=== PATIENT | female | born 1950 | race Caucasian/White ===

== ENCOUNTER 2023-04-15 12:14 | Observation (INO) | payer MEDICARE, OTHER, SELFPAY ==
[2023-04-15] VITALS (13 sets, daily range): BP systolic 107–160; BP diastolic 46–76; PULSE 59–97; RESP 16–31; TEMP 36.6–36.8; O2SAT 94–99; BMI 26.6
--- NOTE | 2023-04-15 13:09 | CT_ITS ---
The [address] [address] Patient Name: ESPINOZA MONAE MRN: [id number] date: 1950 Sex: F Assigned Patient Location: ED.MAIN Current Patient Location: ER Accession/Order Number: [id number] Exam Date: 04/15/2023 13:45 Report Date: 04/15/2023 14:18 At the request of: PERICO RODRIGUEZ Procedure: CT stroke head/brain wo con EXAMINATION: CT stroke head/brain wo con HISTORY: right sided paresthesias COMPARISON: No relevant comparison available. TECHNIQUE: Axial CT images were obtained without IV contrast. Dose reduction techniques were achieved by using automated exposure control and/or adjustment of mA and/or kV according to patient size and/or use of iterative reconstruction technique. FINDINGS: BRAIN: No edema, hemorrhage, mass, acute infarction, or inappropriate atrophy. CSF SPACES: No hydrocephalus, subarachnoid hemorrhage, or mass. Appropriate for age. SKULL: No fracture, mass, or other significant visible lesion. SINUSES: No significant mucosal thickening or fluid on the limited views. ORBITS: No appreciable abnormality on the limited views. OTHER: Negative IMPRESSION: 1. No intracranial hemorrhage. 2. No CT evidence of acute ischemia or suspicious findings. 3. Age consistent mild chronic changes. Electronically authenticated by: AKI SEE Date: 04/15/2023 14:18
--- NOTE | 2023-04-15 13:09 | XR_ITS ---
The [address] [address] Patient Name: ESPINOZA MONAE MRN: [id number] date: 1950 Sex: F Assigned Patient Location: ED.MAIN Current Patient Location: ER Accession/Order Number: [id number] Exam Date: 04/15/2023 13:45 Report Date: 04/15/2023 14:24 At the request of: PERICO RODRIGUEZ Procedure: XR chest 1V EXAMINATION: XR chest 1V HISTORY: chest pain COMPARISON: No relevant comparison available. FINDINGS: LUNGS: Mild haziness within lateral left lung base. VASCULATURE: No increased pulmonary vasculature. PLEURA: No pneumothorax, effusion, or pleural thickening. CARDIAC: No cardiomegaly or cardiac silhouette abnormality. MEDIASTINUM: No visible mass or adenopathy. BONES: No fracture or visible bone lesion. OTHER: Negative. IMPRESSION: 1. Minimal left basilar atelectasis versus infiltrates. Electronically authenticated by: AKI SEE Date: 04/15/2023 14:24
--- NOTE | 2023-04-15 13:55 | ED.GENADUL1 ---
HPI - General Adult General Chief complaint: Chest Pain Stated complaint: headache Time Seen by Provider: 04/15/23 13:04 Source: patient Mode of arrival: ambulance History of Present Illness HPI narrative: cc - right sided tingling and central chest pain A few hours ago the patient developed intense tingling down the right side of her body and her face. She said that she felt slightly dizzy and had a mild throbbing throughout her head. These symptoms have significantly lessened. She also complains of mid sternal chest pain that began within the last hour [employer]. No associated shortness of breath. No injury to the chest and no recent or associated cough. She only takes over the counter supplements and eye drops to treat dry eyes. No prior history of cardiac disease or stroke. Related Data Allergies Allergy/AdvReac Type Severity Reaction Status Date / Time Tumeric Allergy Unknown Uncoded 04/15/23 12:21 phenergan AdvReac Severe Hypotension Uncoded 04/15/23 12:21 Exam Narrative: Exam Narrative: Nurses notes and vital signs reviewed and patient is not hypoxic. afebrile General: Well-appearing and in no apparent distress. Skin: Warm, dry, no pallor noted. No rash. Head: Normocephalic, atraumatic. Neck: Supple, non-tender. Eye: Pupils are equal, round and EOMI. No scleral icterus. Ears, Nose, Mouth, and Throat: Oral mucosa is moist, no tongue deviation Cardiovascular: Regular Rate and Rhythm without murmur, gallop or rub. Respiratory: No accessory muscle use or respiratory distress. Lungs are clear to auscultation, no wheezing, rales or rhonchi No chest wall tenderness Musculoskeletal: normal ROM, no calf or popliteal tenderness, no lower extremity edema/swelling GI: Abdomen is soft, non-distended. Normal bowel sounds. No tenderness to palpation. No rebound, guarding, or rigidity noted. Neurological: A&O x4. No cranial nerve dysfunction observed. No truncal ataxia. Moves all extremities. Sensation intact. Psychiatric: Cooperative and interactive. Normal mood and affect. Constitutional: Vital Signs, click to edit/add: Vital Signs - 24 hr 04/15/23 12:21 Temperature 97.9 F Pulse Rate [Monito r Right] 85 Respiratory Rate 16 Blood Pressure [Ri ght Arm] 160/75 H Pulse Oximetry 98 Oxygen Delivery Me thod Room Air Course Vital Signs Vital signs: Vital Signs Temperature 97.9 F 04/15/23 12:21 Pulse Rate 85 04/15/23 12:21 Respiratory Rate 16 04/15/23 12:21 Blood Pressure 160/75 H 04/15/23 12:21 Pulse Oximetry 98 04/15/23 12:21 Oxygen Delivery Method Room Air 04/15/23 12:21 Temperature 97.9 F 04/15/23 12:21 Pulse Rate 85 04/15/23 12:21 Respiratory Rate 16 04/15/23 12:21 Blood Pressure 160/75 H 04/15/23 12:21 Pulse Oximetry 98 04/15/23 12:21 Oxygen Delivery Method Room Air 04/15/23 12:21 Medical Decision Making MDM Narrative Medical decision making narrative: Patient was placed on equipment monitor phototypesetting and EKG obtained. Blood drawn and sent for evaluation. patient was sent for CT scanning of the brain to evaluate for stroke. Chest x-ray was also obtained. radiologist did not identify any evidence of acute intracranial hemorrhage or large CVA on the patient's noncontrast head CT. Chest x-ray was also unremarkable - there was some question of atelectasis. pulmonary testing did not reveal any acute abnormalities. Troponin was negative. Due to the patient's age and due to lack of prior cardiac evaluation and concern for both acute cardiac disease as well as the potential for acute neurovascular problem the patient will be admitted for further testing. I discuss patient's case with Dr. Peace, the hospitalist, who will evaluate this patient further. The patient was informed of the findings, diagnosis and plan to admit. Lab Data Labs: Lab Results 04/15/23 Range/Units 14:08 WBC 7.7 (4.0-11.0) 10^3/uL RBC 4.66 (4.20-5.40) 10^6/uL Hgb 13.7 (12.0-16.0) g/dL Hct 41.8 (36.0-48.0) % MCV 89.7 (81.0-99.0) fL MCH 29.4 (26.7-34.0) pg MCHC 32.8 (29.9-35.2) g/dL RDW 12.7 (11.0-15.0) % Plt Count 214 (150-450) 10^3/uL MPV 10.7 (9.5-13.5) fL Neut % (Auto) 79.6 H (43.0-75.0) % Lymph % (Auto) 12.8 L (20.5-60.0) % Carroll % (Auto) 4.7 (1.7-12.0) % Eos % (Auto) 1.6 (0.9-7.0) % Baso % (Auto) 0.8 (0.2-2.0) % Neut # (Auto) 6.2 (1.4-6.5) 10^3/uL Lymph # (Auto) 1.0 L (1.2-3.8) 10^3/uL [place] # (Auto) 0.4 (0.3-0.8) 10^3/uL Eos # (Auto) 0.1 (0.0-0.7) 10^3/uL Baso # (Auto) 0.1 (0.0-0.1) 10^3/uL Nucleated RBCs 0 Sodium 137 (136-145) mmol/L Potassium 3.8 (3.5-5.1) mmol/L Chloride 99 (98-107) mmol/L Carbon Dioxide 30.4 (21.0-32.0) mmol/L Anion Gap 11.4 BUN 12.0 (7.0-18.0) mg/dL Creatinine 0.76 (0.55-1.02) mg/dL Est GFR ( Amer) >60 (>=60) Est GFR (Non-Af Amer) >60 (>=60) BUN/Creatinine Ratio 15.8 Glucose 116 H (74-106) mg/dL Calcium 9.3 (8.5-10.1) mg/dL Troponin I High Sens 43.2 (4.0-51.3) pg/mL Imaging Data CT scan - head: Radiologist's impression: Patient Name: ESPINOZA MONAE MRN: [facility]:[id number] date: 1950 Sex: F Assigned Patient Location: ED.MAIN Current Patient Location: ER Accession/Order Number: [id number] Exam Date: 04/15/2023 13:45 Report Date: 04/15/2023 14:18 At the request of: PERICO RODRIGUEZ Procedure: CT stroke head/brain wo con EXAMINATION: CT stroke head/brain wo con HISTORY: right sided paresthesias COMPARISON: No relevant comparison available. TECHNIQUE: Axial CT images were obtained without IV contrast. Dose reduction techniques were achieved by using automated exposure control and/or adjustment of mA and/or kV according to patient size and/or use of iterative reconstruction technique. FINDINGS: BRAIN: No edema, hemorrhage, mass, acute infarction, or inappropriate atrophy. CSF SPACES: No hydrocephalus, subarachnoid hemorrhage, or mass. Appropriate for age. SKULL: No fracture, mass, or other significant visible lesion. SINUSES: No significant mucosal thickening or fluid on the limited views. ORBITS: No appreciable abnormality on the limited views. OTHER: Negative IMPRESSION: 1. No intracranial hemorrhage. 2. No CT evidence of acute ischemia or suspicious findings. 3. Age consistent mild chronic changes. Electronically authenticated by: AKI SEE Date: 04/15/2023 14:18 Chest x-ray: Radiologist's impression: Patient Name: ESPINOZA MONAE MRN: [facility]:[id number] date: 1950 Sex: F Assigned Patient Location: ED.MAIN Current Patient Location: ER Accession/Order Number: [id number] Exam Date: 04/15/2023 13:45 Report Date: 04/15/2023 14:24 At the request of: PERICO RODRIGUEZ Procedure: XR chest 1V EXAMINATION: XR chest 1V HISTORY: chest pain COMPARISON: No relevant comparison available. FINDINGS: LUNGS: Mild haziness within lateral left lung base. VASCULATURE: No increased pulmonary vasculature. PLEURA: No pneumothorax, effusion, or pleural thickening. CARDIAC: No cardiomegaly or cardiac silhouette abnormality. MEDIASTINUM: No visible mass or adenopathy. BONES: No fracture or visible bone lesion. OTHER: Negative. IMPRESSION: 1. Minimal left basilar atelectasis versus infiltrates. Electronically authenticated by: AKI SEE Date: 04/15/2023 14:24 ECG Data Interpretation: EKG interpretation: Emergency Department physician interpretation. Normal sinus rhythm at 72bpm. Indeterminatel axis, incomplete RBBB. No ST segment elevation or depression. Discharge Plan Discharge Chief Complaint: Chest Pain Clinical Impression: Paresthesia, Chest pain Patient Disposition: Admitted As Inpatient Time of Disposition Decision: 15:15 Referrals: ZULAY GONZALES [Primary Care Provider] - 1 week
[2023-04-15 14:22] LABS: Basophils Absolute Auto 0.1 10^3/uL (0.0-0.1); Basophils Percent Auto 0.8 % (0.2-2.0); Eosinophils Absolute Auto 0.1 10^3/uL (0.0-0.7); Eosinophils Percent Auto 1.6 % (0.9-7.0); Hematocrit 41.8 % (36.0-48.0); Hemoglobin 13.7 g/dL (12.0-16.0); Immature Granulocytes Abs Auto 0.04 10^3/uL (0.00-0.03); Immature Granulocytes Pct Auto 0.5 % (0.0-0.5); Lymphocytes Percent Auto 12.8 % (20.5-60.0); Mean Corpuscular HGB Conc 32.8 g/dL (29.9-35.2); Mean Corpuscular Hemoglobin 29.4 pg (26.7-34.0); Mean Corpuscular Volume 89.7 fL (81.0-99.0); Mean Platelet Volume 10.7 fL (9.5-13.5); Monocytes Absolute Auto 0.4 10^3/uL (0.3-0.8); Monocytes Percent Auto 4.7 % (1.7-12.0); Neutrophils Absolute Auto 6.2 10^3/uL (1.4-6.5); Neutrophils Percent Auto 79.6 % (43.0-75.0); Nucleated Red Blood Cells 0; Platelet Count 214 10^3/uL (150-450); Red Blood Count 4.66 10^6/uL (4.20-5.40); Red Cell Distribution Width 12.7 % (11.0-15.0); White Blood Count 7.7 10^3/uL (4.0-11.0)
[2023-04-15] MEDS: ASPIRIN 81 MG TAB.CHEW 324 MG PO (14:27)
[2023-04-15 14:34] LABS: Anion Gap 11.4; BUN Creatinine Ratio 15.8; Calcium 9.3 mg/dL (8.5-10.1); Carbon Dioxide 30.4 mmol/L (21.0-32.0); Chloride 99 mmol/L (98-107); Estimated GFR (African America >60 (>=60); Estimated GFR (Non-African Ame >60 (>=60); Glucose 116 mg/dL (74-106); Potassium 3.8 mmol/L (3.5-5.1); Sodium 137 mmol/L (136-145); Troponin I High Sensitivity 43.2 pg/mL (4.0-51.3)
--- NOTE | 2023-04-15 14:58 | CT_ITS ---
[address] [address] Patient Name: ESPINOZA MONAE MRN: [id number] date: 1950 Sex: F Assigned Patient Location: ER Current Patient Location: ICU Accession/Order Number: [id number] Exam Date: 04/15/2023 16:05 Report Date: 04/15/2023 17:27 At the request of: PERICO RODRIGUEZ Procedure: CT angio head EXAMINATION: CT angiogram of the head and neck with intravenous contrast. COMPARISON: Correlated with noncontrast head CT from today. CLINICAL STATEMENT: right sided paresthesia. headache TECHNIQUE: Helical CT images of the head and neck were obtained after the administration of IV contrast. Multiplanar reformats and maximum intensity projection images were generated at the scanner. 3-D imaging was performed. Dose reduction technique used: Automated exposure control and/or adjustment of the mA and/or kV according to patient size and/or use of iterative reconstruction technique. Findings: CTA of the neck: Aortic arch: Conventional arch anatomy. No significant stenosis of the brachiocephalic artery, right or left subclavian arteries. Right common carotid artery: No significant stenosis. Right internal carotid artery: No significant plaque. No hemodynamically significant stenosis, with degree of narrowing in the <50% range. Left common carotid artery: No significant stenosis. Left internal carotid artery: No significant plaque. No hemodynamically significant stenosis, with degree of narrowing in the <50% range. Vertebral arteries: No hemodynamically significant stenosis. * Note: Measurements of stenoses were done in accordance with NASCET criteria. That is, the stenosis is calculated from the ratio of the linear luminal diameter of the narrowest segment of the diseased portion of the artery compared to the diameter of the artery beyond or distal to any post stenotic dilatation. CTA of the head ([place], COW): Right anterior circulation: Normal course and caliber of the right intracranial internal carotid artery. Conventional branching anatomy into the anterior and middle cerebral arteries. No significant stenosis. No aneurysm. Left anterior circulation: Normal course and caliber of the right intracranial internal carotid artery. Conventional branching anatomy into the anterior and middle cerebral arteries. No significant stenosis. No aneurysm. Anterior communicating artery: Present. No aneurysm. Posterior communicating arteries: May be congenitally absent or hypoplastic. Posterior circulation: No significant stenosis. No aneurysm. Soft tissues of the neck: No other significant findings. Visualized lung apices: Clear. Osseous: No acute findings. Impression: 1. No large vessel occlusion. 2. No significant stenosis of the cervical carotid or vertebral arteries. Electronically authenticated by: NASH HERNÁNDEZ Date: 04/15/2023 17:27
--- NOTE | 2023-04-15 14:58 | CT_ITS ---
[address] [address] Patient Name: ESPINOZA MONAE MRN: [id number] date: 1950 Sex: F Assigned Patient Location: ER Current Patient Location: ICU Accession/Order Number: [id number] Exam Date: 04/15/2023 16:05 Report Date: 04/15/2023 17:27 At the request of: PERICO RODRIGUEZ Procedure: CT angio neck EXAMINATION: CT angiogram of the head and neck with intravenous contrast. COMPARISON: Correlated with noncontrast head CT from today. CLINICAL STATEMENT: right sided paresthesia. headache TECHNIQUE: Helical CT images of the head and neck were obtained after the administration of IV contrast. Multiplanar reformats and maximum intensity projection images were generated at the scanner. 3-D imaging was performed. Dose reduction technique used: Automated exposure control and/or adjustment of the mA and/or kV according to patient size and/or use of iterative reconstruction technique. Findings: CTA of the neck: Aortic arch: Conventional arch anatomy. No significant stenosis of the brachiocephalic artery, right or left subclavian arteries. Right common carotid artery: No significant stenosis. Right internal carotid artery: No significant plaque. No hemodynamically significant stenosis, with degree of narrowing in the <50% range. Left common carotid artery: No significant stenosis. Left internal carotid artery: No significant plaque. No hemodynamically significant stenosis, with degree of narrowing in the <50% range. Vertebral arteries: No hemodynamically significant stenosis. * Note: Measurements of stenoses were done in accordance with NASCET criteria. That is, the stenosis is calculated from the ratio of the linear luminal diameter of the narrowest segment of the diseased portion of the artery compared to the diameter of the artery beyond or distal to any post stenotic dilatation. CTA of the head ([place], COW): Right anterior circulation: Normal course and caliber of the right intracranial internal carotid artery. Conventional branching anatomy into the anterior and middle cerebral arteries. No significant stenosis. No aneurysm. Left anterior circulation: Normal course and caliber of the right intracranial internal carotid artery. Conventional branching anatomy into the anterior and middle cerebral arteries. No significant stenosis. No aneurysm. Anterior communicating artery: Present. No aneurysm. Posterior communicating arteries: May be congenitally absent or hypoplastic. Posterior circulation: No significant stenosis. No aneurysm. Soft tissues of the neck: No other significant findings. Visualized lung apices: Clear. Osseous: No acute findings. Impression: 1. No large vessel occlusion. 2. No significant stenosis of the cervical carotid or vertebral arteries. Electronically authenticated by: NASH HERNÁNDEZ Date: 04/15/2023 17:27
--- NOTE | 2023-04-15 16:11 | ECG_ITS ---
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
--- NOTE | 2023-04-15 16:17 | P.HP_ITS ---
H&P: HPI History of Present Illness Chief complaint: headache Narrative: Patient is a 73-year-old female with past medical history of dry eyes who presents with a few day history of some right-sided arm weakness, some right facial tingling, and just general weakness. She reports that symptoms come and go and are not there for any extended period of time. She also states that she's had some chest pain more discomfort and pressure-like feeling nonradiating. She has a history of some neck pain that has been chronic over the last few months she has been using some arthritis topical gel that has been helping. 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 Patient has no prior cardiac history has had no reason to have a cardiac workup such as stress test. Patient denies any high blood pressure diabetes high cholesterol or family history of stroke or personal history of stroke. She gets around great at home her is present at the time of admission exam and he notes no change in speech and confusion. At times she feels dizzy if she moves her head too fast. Review of Systems ROS Narrative ROS: a complete review of systems were reviewed with patient and are positive as below or listed in History of Chief Complaint. General: no fever, chills, night sweats Head:headache, trauma, visual changes, nausea or vomiting Skin: no reported rashes, itching or sores Eyes: no blurriness of vision Ears: no reported hearing loss, vertigo, earache, or tinnitus Throat: no sore throat, hoarseness, swelling of neck, or tongue pain Heart: midsternal chest pain/pressure Lungs: no shortness of breath or cough GI: no diarrhea or vomiting/nausea Urinary: no urinary urgency, frequency or pain Neuro: right arm and right facial numbness and tingling HEM: no bleeding issues or bruising ENDO: no thyroid problems Psych: no anxiety or depression PFSH PFSH Surgical History (Updated 04/15/23 @ 16:36 by Xochitl Peace DO) Family History (Updated 04/15/23 @ 16:35 by Xochitl Peace DO) Grandmother Family history of stroke Social History (Updated 04/15/23 @ 16:34 by Xochitl Peace DO) Within the past year, how often did you have a drink containing alcohol: never Score interpretation: A score less than 3 is consistent with normal alcohol consumption. Smoking status: Never smoker Meds Home Medications and Allergies Allergies Allergy/AdvReac Type Severity Reaction Status Date / Time Tumeric Allergy Unknown Uncoded 04/15/23 12:21 phenergan AdvReac Severe Hypotension Uncoded 04/15/23 12:21 Exam Narrative: Exam Narrative: General: Patient is alert, and oriented to person, place and time with normal affect, proper hygiene Skin: no visible rashes, or ulcers Head: atraumatic, acephalic Eyes: PERRLA, no nystagmus present, conjunctiva clear, no scleral icterus Ears: normal Tympanic Membrane, normal gross auditory acuity Nose: symmetric, no discharge, no maxillary or frontal sinus tenderness Mouth/Throat: no erythema, exudate, or tonsillar enlargement, normal dentition Neck: no masses palpated, normal thyroid, no JVD or audible carotid bruits Heart: Normal rate and rhythm, no murmurs/rubs/gallops Lungs: no audible wheezes, crackles and normal breath sounds all lung caldera Abdomen: Normal audible bowel sounds, no distension, No palpable masses, no organomegaly, no rebound/guarding/ or rigidity Musculoskeletal: no swelling bilateral lower extremities Vascular: Normal carotid, radial, femoral, posterior tibial, and dorsalis pedis pulses Lymph: no supraclavicular, axillary, or anterior/posterior cervical adenopathy Neuro: CN II-X grossly intact, normal sensation upper and lower extremities, five out of five strength upper and lower extremities Constitutional: Vital Signs, click to edit/add: Vital Signs - 24 hr 04/15/23 12:21 04/15/23 14:38 04/15/23 14:58 Temperature 97.9 F Pulse Rate 74 68 Pulse Rate [Monito r Right] 85 Respiratory Rate 16 17 20 Blood Pressure Blood Pressure [Ri ght Arm] 160/75 H Pulse Oximetry 98 97 96 Oxygen Delivery Me thod Room Air 04/15/23 15:00 04/15/23 15:27 Temperature Pulse Rate 75 72 Pulse Rate [Monito r Right] Respiratory Rate 31 H 17 Blood Pressure 132/62 H 157/65 H Blood Pressure [Ri ght Arm] Pulse Oximetry 97 99 Oxygen Delivery Me thod Results Labs Labs: Short CBC 04/15/23 Range/Units 14:08 WBC 7.7 (4.0-11.0) 10^3/uL Hgb 13.7 (12.0-16.0) g/dL Hct 41.8 (36.0-48.0) % Plt Count 214 (150-450) 10^3/uL [facility] 04/15/23 14:08 Sodium 137 Potassium 3.8 Chloride 99 Carbon Dioxide 30.4 BUN 12.0 Creatinine 0.76 Glucose 116 H Calcium 9.[address] scan - head: Attestation: I have reviewed the pertinent imaging results. Radiologist's impression: no acute intracranial process Assessment and Plan Assessment and Plan (1) Acute right-sided weakness: (2) TIA (transient ischemic attack): (3) Chest pain: Plan #1 right sided weakness possible transient ischemic attack-CAT scan of the brain showed no acute processes, EKG showed no acute processes, will check cardiac enzymes, morning thyroid-stimulating hormone, lipids, hemoglobin A1c CBC and CMP. Patient will get a CTA of the head and neck. Repeat MRI in the morning of the brain. We'll place on aspirin daily and Lipitor. #2 atypical chest pain-patient is a nonsmoker and has no other risk factors for coronary artery disease or myocardial infarction, will place patient on telemetry and continue to trend troponins and cardiac enzymes ?3. stratify risk factors by morning labs as listed above. #3 history of dry eyes may continue home drops #4 headache, may be associated with the problems above Tylenol as needed Patient is a full code Patient may ambulate, SCDs for deep vein thrombosis prophylaxis Patient is admitted to observation status and is not expected to stay more than one night Discussed with patient and that we do not have a neurology service and if anything were to show up unexpectedly on imaging that she may need transferred to a higher level of care. Patient and are both understanding of this
[2023-04-15 16:59] LABS: Creatine Kinase 62 U/L (26-192); Creatine Kinase MB 0.76 ng/mL (<=3.60); Troponin I High Sensitivity 39.8 pg/mL (4.0-51.3)
[2023-04-15] MEDS: ATORVASTATIN CALCIUM 40 MG TABLET (21:31)
[2023-04-15] MEDS: ATORVASTATIN CALCIUM 40 MG TABLET PO (21:43)
[2023-04-16] VITALS: PULSE 62
[2023-04-16 02:07] VITALS: PULSE 65
[2023-04-16 04:34] VITALS: BP 112/58; PULSE 68; RESP 20; TEMP 36.4; O2SAT 97
[2023-04-16 04:38] VITALS: PULSE 60
[2023-04-16 05:48] LABS: Basophils Absolute Auto 0.1 10^3/uL (0.0-0.1); Basophils Percent Auto 0.7 % (0.2-2.0); Eosinophils Absolute Auto 0.4 10^3/uL (0.0-0.7); Eosinophils Percent Auto 4.5 % (0.9-7.0); Hematocrit 37.6 % (36.0-48.0); Hemoglobin 12.4 g/dL (12.0-16.0); Immature Granulocytes Abs Auto 0.03 10^3/uL (0.00-0.03); Immature Granulocytes Pct Auto 0.4 % (0.0-0.5); Lymphocytes Absolute Auto 1.8 10^3/uL (1.2-3.8); Mean Corpuscular Hemoglobin 29.7 pg (26.7-34.0); Mean Platelet Volume 11.1 fL (9.5-13.5); Monocytes Absolute Auto 0.5 10^3/uL (0.3-0.8); Monocytes Percent Auto 6.4 % (1.7-12.0); Neutrophils Absolute Auto 5.4 10^3/uL (1.4-6.5); Nucleated Red Blood Cells 0; Platelet Count 223 10^3/uL (150-450); Red Blood Count 4.18 10^6/uL (4.20-5.40); White Blood Count 8.2 10^3/uL (4.0-11.0)
[2023-04-16 07:06] LABS: Estimated Average Glucose 117 mg/dL; Glycohemoglobin A1C 5.7 % (4.5-6.2)
[2023-04-16 07:26] LABS: Alanine Aminotransferase 18 U/L (14-59); Albumin Globulin Ratio 0.9; Albumin Level 3.1 g/dL (3.4-5.0); Alkaline Phosphatase 81 U/L (46-116); Anion Gap 11.8; Aspartate Amino Transferase 16 U/L (15-37); Bilirubin Total 0.4 mg/dL (0.2-1.0); Calcium 8.7 mg/dL (8.5-10.1); Carbon Dioxide 27.5 mmol/L (21.0-32.0); Chloride 103 mmol/L (98-107); Chol HDL Ratio 2.5; Cholesterol 191 mg/dL (<=200); Estimated GFR (African America >60 (>=60); Estimated GFR (Non-African Ame >60 (>=60); Globulin 3.5 g/dL; Glucose 110 mg/dL (74-106); HDL Cholesterol 75 mg/dL (40-60); Potassium 4.3 mmol/L (3.5-5.1); Sodium 138 mmol/L (136-145); Thyroid Stimulating Hormone 2.537 uIU/mL (0.358-3.740); Total Protein 6.6 g/dL (6.4-8.2); Triglycerides 42 mg/dL (<=150); VLDL CHOLESTEROL 8.4 mg/dL
--- NOTE | 2023-04-16 08:00 | MR_ITS ---
[address] [address] Patient Name: ESPINOZA MONAE MRN: [id number] date: 1950 Sex: F Assigned Patient Location: ICU Current Patient Location: ICU Accession/Order Number: [id number] Exam Date: 04/16/2023 10:15 Report Date: 04/16/2023 11:15 At the request of: GREGORIA HUERTAS Procedure: MR head/brain wo con EXAM: MRI of the brain without IV contrast. REASON FOR EXAM: right sided weakness, TIA COMPARISON: CT scan from yesterday FINDINGS: No intracranial masses. No abnormal restricted diffusion or evidence of evolving infarct. No evidence of intracranial hemorrhage. No hydrocephalus. No significant abnormal parenchymal signal abnormalities. Paranasal sinuses and mastoid air cells are clear. Remainder unremarkable. IMPRESSION: Unremarkable brain MRI. Electronically authenticated by: SUSAN LUDWIG Date: 04/16/2023 11:15
[2023-04-16] MEDS: ASPIRIN 81 MG TAB.CHEW PO (08:08)
[2023-04-16 08:19] VITALS: BP 116/81; PULSE 64; RESP 16; TEMP 36.7; O2SAT 96
--- NOTE | 2023-04-16 08:40 | CA_ITS ---
Patient: ESPINOZA MONAE Exam Date: 04/16/2023 : 1950 Gender:F Ordering : GREGORIA HUERTAS . Admission #: [id number] Family : DR ZULAY GONZALES D.OShannon Order #: [id number] CLICK HERE TO VIEW EXAM ECHOCARDIOGRAM REPORT PROCEDURE: CA ECHO DOPPLER COMPLETE INDICATIONS: TIA, chest pain COMPARISON: None. DESCRIPTION: COMPLETE ECHOCARDIOGRAM Real-time transthoracic echocardiography with 2D, M-mode, spectral and color flow Doppler performed. QUALITY: Technical quality was good. LEFT VENTRICLE: Normal chamber size. Normal left ventricular wall thickness. Normal systolic function. LV EF: Normal left ventricular ejection fraction, (>55%). DIASTOLIC: ATRIAL SEPTUM: Hypermobile interatrial septum. Visually appears intact. LEFT ATRIUM: Normal chamber size. RIGHT ATRIUM: Normal chamber size. RIGHT VENTRICLE: Normal chamber size. Normal right ventricular systolic function. TRICUSPID VALVE: Normal mobility and thickness. No stenosis with trivial regurgitation. No evidence of pulmonary hypertension. RVSP 26 mmHg MITRAL VALVE: Normal mobility and thickness. No evidence of mitral valve stenosis. There is no mitral annular calcification. No mitral regurgitation. AORTIC VALVE: Normal trileaflet appearance. No visible sclerosis. Normal leaflet mobility. No evidence of aortic valve stenosis. No aortic regurgitation. AORTIC ROOT: Normal diameter and appearance. PULMONIC VALVE: Normal thickness and mobility. No stenosis. No regurgitation. PERICARDIUM: No evidence of pericardial effusion. IVC: Collapses with inspirations. PLEURA: CONCLUSION: 1. Normal ventricular systolic function. LVEF is 55 to 60%. 2. No significant valvular dysfunction. 3. Normal right-sided pressures. 4. No pericardial effusion. Adult Echocardiography Procedure Report Left Ventricle LVEDD (3.7 - 5.6 cm): 4.19 cm LVESD (2.2 - 4.0 cm): 2.91 cm LVIVS thickness (0.6 - 1.2 cm): 0.85 cm LVPW thickness (0.5 - 1.0 cm): 0.65 cm e': 0.12 m/s E - e': 4.74 LVOT Max Gradient: 2.68 mm[Hg] LVOT Area (cm2): 0.82 m/s Peak Velocity (LVOT): 0.82 m/s LVOT Diameter 2.14 cm Left Atrium Left Atrium Systolic Dimension: 3.14 cm Mitral Valve MV E to A Ratio: 0.79 Mitral Valve A-Wave Peak Velocity: 0.73 m/s Mitral Valve E-Wave Peak Velocity: 0.58 m/s Right Ventricle Aorta AO Root Diam: 2.99 cm Ascending Ao Diam: 2.43 cm Aortic Valve AoV Area (Peak Zenon): 2.35 cm2, 2.35 cm2 Peak Velocity(Antegrade Flow): 1.24 m/s Peak Gradient(Antegrade Flow): 6.20 mm[Hg] Tricuspid Valve Peak Velocity (Regurgitant Flow): 2.42 m/s, 2.56 m/s Pulmonic Valve Peak Velocity: 1.12 m/s Peak Gradient: 5.05 mm[Hg], 5.05 mm[Hg] Right Atrium Dictated by: Conner Lovelace M.D. on 04/21/2023 at 11:02 Approved by: Conner Lovelace M.D. on 04/21/2023 at 11:08
--- NOTE | 2023-04-16 10:41 | CM.NOTE ---
Rounds made with Dr. Peace, pt awaiting MRI and echo. Dr. Peace will reevaluate this afternoon for discharge planning. No discharge needs identified.
--- NOTE | 2023-04-16 11:56 | CM.NOTE ---
Medicare Outpatient Observation Notice discussed with pt , pt verbalizes understanding and signs paper. Original given to pt and copy put on pt's chart.
--- NOTE | 2023-04-16 13:18 | PM.DS1 ---
DS: Providers Provider Date of admission: 04/15/23 16:20 Primary care physician: ZULAY GONZALES DS: Diagnosis Discharge Diagnosis (1) Acute right-sided weakness: (2) TIA (transient ischemic attack): (3) Chest pain: DS: Summary Hospital Course Hospital Course: #1 right sided weakness possible transient ischemic attack-CAT scan of the brain showed no acute processes, EKG showed no acute processes, cardiac enzymes normal, morning thyroid-stimulating hormone normal, lipid panel normal, hemoglobin A1c normal CBC and CMP normal. CTA of the head and neck normal. Repeat MRI of the brain normal. discharge home in stable condition. no events on telemetry, most likely arthritic pain/musculoskeletal pain #2 atypical chest pain-patient is a nonsmoker and has no other risk factors for coronary artery disease or myocardial infarction, see #1, resolved, echo pending but can follow up final result with pcp #3 history of dry eyes may continue home drops #4 headache, may be associated with the problems above Tylenol as needed, resolved Status at Discharge Functional status at discharge: independent ambulation Overall status at discharge: patient is back to baseline Time Spent with Patient Time attestation: Total time spent providing and/or coordinating discharge services: Quality: Stroke Onset of Symptoms Date: 04/15/23 Onset of Symptoms Time: 11:00 Exam Narrative: Exam Narrative: General: Patient is alert, and oriented to person, place and time with normal affect, proper hygiene Skin: no visible rashes, or ulcers Head: atraumatic, acephalic Eyes: PERRLA, no nystagmus present, conjunctiva clear, no scleral icterus Ears: normal Tympanic Membrane, normal gross auditory acuity Nose: symmetric, no discharge, no maxillary or frontal sinus tenderness Mouth/Throat: no erythema, exudate, or tonsillar enlargement, normal dentition Neck: no masses palpated, normal thyroid, no JVD or audible carotid bruits Heart: Normal rate and rhythm, no murmurs/rubs/gallops Lungs: no audible wheezes, crackles and normal breath sounds all lung caldera Abdomen: Normal audible bowel sounds, no distension, No palpable masses, no organomegaly, no rebound/guarding/ or rigidity Musculoskeletal: muscle atrophy noted, ROM is limited due to being in hospital bed, no swelling bilateral lower extremities Vascular: Normal carotid, radial, femoral, posterior tibial, and dorsalis pedis pulses Lymph: no supraclavicular, axillary, or anterior/posterior cervical adenopathy Neuro: CN II-X grossly intact, normal sensation upper and lower extremities, no weakness in any extremity Constitutional: Vital Signs, click to edit/add: Vital Signs - 24 hr 04/15/23 14:38 04/15/23 14:58 04/15/23 15:00 Temperature Pulse Rate 74 68 75 Pulse Rate [Monito r Right] Respiratory Rate 17 20 31 H Blood Pressure 132/62 H Blood Pressure [Ri ght Arm] Pulse [facility]ximetry 97 96 [facility] 04/[facility]/23 15:27 04/15/23 16:38 04/15/23 16:38 Temperature 98.3 F Pulse Rate 72 76 Pulse Rate [Monito r Right] 76 Respiratory Rate 17 16 16 Blood Pressure 157/65 H Blood Pressure [Ri ght Arm] 152/76 H Pulse Oximetry 99 98 97 [facility] Room Air 04/15/23 16:38 04/15/23 18:03 04/15/23 20:04 Temperature 98.3 F Pulse Rate 76 Pulse Rate [Monito r Right] 97 H Respiratory Rate 16 18 Blood Pressure Blood Pressure [Ri ght Arm] 152/76 H 129/64 H Pulse Oximetry 97 97 [facility] Room Air 04/15/23 20:14 04/15/23 20:46 04/15/23 23:24 Temperature 97.8 F Pulse Rate 80 Pulse Rate [Monito r Right] Respiratory Rate 18 Blood Pressure Blood Pressure [Ri ght Arm] 107/46 L Pulse Oximetry 94 L 97 98 [facility] Room Air Room Air 04/15/23 20:00 04/15/23 23:00 04/16/23 00:00 Temperature Pulse Rate 66 59 L 62 Pulse Rate [Monito r Right] Respiratory Rate Blood Pressure Blood Pressure [Ri ght Arm] Pulse Oximetry [facility] 04/16/23 02:07 04/16/23 04:34 04/16/23 04:38 Temperature 97.6 F Pulse Rate 65 68 60 Pulse Rate [Monito r Right] Respiratory Rate 20 Blood Pressure Blood Pressure [Ri ght Arm] 112/58 L Pulse Oximetry 97 [facility] 04/16/23 08:19 04/16/23 08:19 Temperature 98.1 F Pulse Rate 64 Pulse Rate [Monito r Right] 64 Respiratory Rate 16 16 Blood Pressure Blood Pressure [Ri ght Arm] 116/81 H Pulse Oximetry 96 Oxygen Delivery Me thod Room Air DS: Data Data Completed and Pending Labs on day of discharge: Labs from last 24 hours 04/16/23 04/15/23 04/15/23 04:05 16:30 14:08 WBC 8.2 7.7 RBC 4.18 L 4.66 Hgb 12.4 13.7 Hct 37.6 41.8 MCV 90.0 89.7 MCH 29.7 29.4 MCHC 33.0 32.8 RDW 13.0 12.7 Plt Count 223 214 MPV 11.1 10.7 Neut % (Auto) 66.0 79.6 H Lymph % (Auto) 22.0 12.8 L Stone % (Auto) 6.4 4.7 Eos % (Auto) 4.5 1.6 Baso % (Auto) 0.7 0.8 Neut # (Auto) 5.4 6.2 Lymph # (Auto) 1.8 1.0 L Stone # (Auto) 0.5 0.4 Eos # (Auto) 0.4 0.1 Baso # (Auto) 0.1 0.1 Nucleated RBCs 0 0 Sodium 138 137 Potassium 4.3 3.8 Chloride 103 99 Carbon Dioxide 27.5 30.4 Anion Gap 11.8 11.4 BUN 18.0 12.0 Creatinine 0.82 0.76 Est GFR ( Amer) >60 >60 Est GFR (Non-Af Amer) >60 >60 BUN/Creatinine Ratio 22.0 15.8 Glucose 110 H 116 H Estimat Average Glucose 117 Hemoglobin A1c 5.7 Calcium 8.7 9.3 Total Bilirubin 0.4 AST 16 ALT 18 Total Creatine Kinase 62 CK-MB (CK-2) 0.76 Troponin I High Sens 39.8 43.2 Total Protein 6.6 Albumin 3.1 L Globulin 3.5 Albumin/Globulin Ratio 0.9 Triglycerides 42 Cholesterol 191 LDL Cholesterol, Calc 108.0 VLDL Cholesterol 8.4 Cholesterol/HDL Ratio 2.5 TSH 2.537 Discharge Plan Discharge Disposition: Home, Self-Care Discharge Medications: Continued cyclosporine [Restasis] 0.05 % dropperette 1 drp OPHTHALMIC (EYE) Q12H Activity: increase activity as tolerated Diet: regular diet Forms: Portal Instructions Follow Up Appointments: Pcp 3-5 days for further plan of care for neck pain and review final results of echo, may take otc tylenol or motrin as needed for her muscle aches/pain
--- NOTE | 2023-04-19 16:16 | CM.DCFOLLOWU ---
Person spoke with: Mia Irby How are you feeling? feeling well How is your pain? no pain Did you understand your discharge instructions? yes Do you have any questions about your discharge instructions? no Were you given any prescriptions at discharge? yes Were you able to get your prescriptions filled? yes Do you understand how to take your medications as ordered? yes Do you have any questions about your follow up appointment and do you plan to keep your follow up appointment? yes Is there anything else that you would like to discuss? No Questions/Comments/Concerns/Other:
== END 2023-04-16 13:44 | disposition home or self-care (01) ==
LOC: ER 15:15 → ICU 04-16 11:15
PROVIDERS: Admitting Provider Family Medicine; Emergency Provider Emergency Medicine; PCP Family Medicine; Visit Provider Family Medicine
DX: G45.9 Transient cerebral ischemic attack, unspecified (principal); R53.1 Weakness; R07.9 Chest pain, unspecified; M79.18 Myalgia, other site; R07.89 Other chest pain; R51.9 Headache, unspecified; M54.2 Cervicalgia; R42 Dizziness and giddiness; R20.2 Paresthesia of skin
CPT/HCPCS: 36415; 70450; 70496; 70498; 70551; 71045; 80048; 80053; 80061; 82550; 82553; 83036; 84443; 84484; 85025; 93005; 93306; 94761; 96374; 96375; 99285; G0378; Q9967

== ENCOUNTER 2025-08-16 09:39 | Outpatient (OUT) | payer MEDICARE, OTHER, SELFPAY ==
--- OUTSIDE RECORDS SUMMARY | 2025-08-16 09:45 | XMS_ITS | Clinical Summary ---
Author Organization [facility] Address [address] [place] [address] Care Team Providers Care Inspector Set Up And Lay Out Name Role Phone Unavailable Primary Care Provider Unavailabl e Social History Tobacco Use Types Packs/Day Years Used Date Smoking Tobacco: Never Assessed Comments Unknown Sex and Gender Information Value Date Recorded Sex Assigned at Not on file Legal Sex Female 7:25 AM EST Gender Identity Not on file Sexual Orientation Not on file Plan of Treatment Health Maintenance Due Date Last Done Comments DEXA SCAN DISCUSSION 1950 HEPATITIS C VIRUS SCREENING 1950 TETANUS 1950 TDAP (ADULT) 01/27/1968 CERVICAL CANCER SCREENING DISCUSSION 1970 MAMMOGRAM SCREENING DISCUSSION 1989 COLORECTAL CANCER SCREENING DISCUSSION 1994 PNEUMOCOCCAL VACCINE SERIES (1 of 1 - PCV) 1999 ZOSTER (SHINGLES) VACCINE (1 of 2) 1999 RSV VACCINE (1 - 1-dose 75+ series) 01/27/2024 COVID-19 VACCINE (3 - 2024-2 6 season) 2025 01/27/2021, 01/06/2021 INFLUENZA VACCINE (#1) 2025 HEP B VACCINE Aged Out No longer shelbie andrea based on patient's age to complete this topic
--- OUTSIDE RECORDS SUMMARY | 2025-08-16 09:45 | XMS_ITS | Clinical Summary ---
Author Organization [facility] tem Address [id number] [address] [place] [address] Care Team Providers Care Hand I Thermal Cutter Name Role Phone Unavailable Primary Care Provider Unavailabl e Immunizations Immunization Administration Dates Next Due COVID-19, mRNA, LNP-S, PF, 30mcg/0.3mL Dose 01/13,01/06/2021 Social History Tobacco Use Types Packs/Day Years Used Date Smoking Tobacco: Never Assessed Childcare Answer Date Recorded Childcare Unknown 01/03/2021 Employment Answer Date Recorded Employment Unknown 01/03/2021 Purpose - Life Answer Date Recorded Purpose and direction in life Unknown Comments Unknown Sex and Gender Information Value Date Recorded Sex Assigned at Not on file Legal Sex Female 11:58 AM EDT Gender Identity Not on file Sexual Orientation Not on file Plan of Treatment Health Maintenance Due Date Last Done Comments Depression Screening 1961 Tobacco Screening 1961 Zoster (Shingles) Vaccine (1 of 2) 1999 Fall Risk Screening 2014 COVID-19 Vaccine ( season) 2025, 01/06/2021 Influenza Vaccine 07/16/2025 DTaP,Tdap and Td Vaccines (2 - Td or Tdap) 05/24/2030 05/24/2020 Medical Devices Not on file Insurance MEDICARE
--- OUTSIDE RECORDS SUMMARY | 2025-08-16 09:45 | XMS_ITS | Clinical Summary ---
Author Organization [facility] Healthcare Address [address] [place] [address] Care Team Providers Care Elementary Instructional Coach Name Role Phone Julián Ortiz MD Primary Care Provider [phone] Allergies Active Allergy Reactions Criticality Noted Date Comments Nalbuphine 05/09/2024 Promethazine 05/09/2024 Medications cetirizine (ZyrTEC) 10 MG tablet Take 10 mg by mouth Daily Active cycloSPORINE 0.1 % solution Administer 0.05 % into affected eye(s) Daily Active Fluticasone Propionate (FLONASE NA) Administer 0.05 mg into affected nostril(s) Daily Active Active Problems Problem Noted Date Diagnosed Date Arthritis 05/09/2024 Carpal tunnel syndrome, right 05/09/2024 Cerumen impaction 05/09/2024 ETD (eustachian tube dysfunction) 05/09/2024 Family History Relation Name Status Comments Father Mother Social History Tobacco Use Types Packs/Day Years Used Date Smoking Tobacco: Never Passive Smoke Exposure: Never Smokeless Tobacco: Never Tobacco Cessation:Counseling Given: Not Answered Alcohol Use Standard Drinks/Week Comments Yes 0 (1 standard drink = 0.6 oz pur e alcohol) Comments Unknown Sex and Gender Information Value Date Recorded Sex Assigned at Not on file Legal Sex Female 2:16 PM EDT Gender Identity Not on file Sexual Orientation Not on file Last Filed Vital Signs Vital Sign Reading Time Taken Comments Blood Pressure 143/65 05/15/2024 9:55 AM EDT Pulse - - Temperature - - Respiratory Rate - - Oxygen Saturation - - Inhaled Oxygen Concentration - - Weight 68.9 kg (152 lb) 05/15/2024 9:55 AM EDT Height 154.9 cm (5' 1 ) 05/15/2024 9:55 AM EDT Body Mass Index 28.72 05/15/2024 9:55 AM EDT Plan of Treatment Health Maintenance Due Date Last Done Comments Pneumococcal Vaccine: 65+ Years (1 of 1 - PCV) 999 Influenza Vaccine (#1) 2025 Insurance MEDICARE [facility] Care Teams Elementary Instructional Coach Relationship Specialty Start Date End Date Julián Ortiz MD PCP - General Family Medicine 05/08/24
--- OUTSIDE RECORDS SUMMARY | 2025-08-16 09:46 | XMS_ITS | Patient Health Record ---
Author Organization [facility] [place] Address [address] [place] [address] Care Team Providers Care Director Housekeeping Name Role Phone Emory Sparks DO Primary Care Provider Unavaila ble Reason For Referral No Information Problems Problem Type SNOMED Code ICD Code Onset Dates Problem Status W/U Status Risk Notes Problem Transient ischemic attack (489687790) TIA (transient ischemic attack) (G45.9) Active confirmed Plan Of Treatment No Information Insurance Providers Payer Name Payer Address Payer Phone Subscriber Number Group Number Insured Name Patient Relationship to Insured Coverage Start Date Coverage End Date [place]IC[place] [address] [place] [address] [id number] Mia Irby Self - patient is the insured [facility] [address] [place] [address] [id number] Mia Irby Self - patient is the insured
--- NOTE | 2025-08-16 09:49 | XR_ITS ---
The [address] [address] Patient Name: ESPINOZA MONAE MRN: [id number] date: 1950 Sex: F Assigned Patient Location: LAB Current Patient Location: LAB Accession/Order Number: [id number] Exam Date: 08/16/2025 10:35 Report Date: 08/16/2025 11:17 At the request of: BRYANNA COOK NP Procedure: XR hip LT min 2V LEFT HIP - 2 views: CLINICAL HISTORY: Left hip pain for over a month. No injury. COMPARISON: None AP and frog-lateral views were obtained. There is no evidence of fracture or dislocation. . Joint space is maintained. No significant hypertrophy is seen. There is minor enthesophyte formation at the greater trochanter and iliac crest. The left SI joint is intact. There are no significant soft tissue abnormalities. XR/XR hip LT min 2V IMPRESSION: NO ACUTE BONY FINDINGS. Impression dictated by: Sushila Medrano M.D. 08/16/2025 11:17 AM Dictation Location: [place] [address] Electronically authenticated by: [id number] Y Date: 08/16/2025 11:17
== END 2025-08-16 09:40 | disposition home or self-care (01) ==
LOC: LAB 09:42
PROVIDERS: PCP Nurse Practitioner Family; Visit Provider Nurse Practitioner Family
DX: M25.552 Pain in left hip (principal)
CPT/HCPCS: 73502